=== PATIENT | female | born 1980 | race Caucasian/White ===

== ENCOUNTER 2022-06-17 08:50 | Emergency (ER) | payer BC, MEDICAID, SELFPAY ==
[2022-06-17 08:58] VITALS: BP 124/69; PULSE 65; RESP 16; TEMP 36.8; O2SAT 97; BMI 32.6
--- NOTE | 2022-06-17 09:08 | ED_ITS ---
HPI - Back Pain/Injury General: Chief Complaint: Back Pain/Injury Stated Complaint: back pain Time Seen by Provider: 06/17/22 08:52 Source: patient Mode of arrival: ambulatory Limitations: no limitations History of Present Illness: Patient is a 41-year-old female presents to ED today with a complaint of mid back pain that awoke her from sleep around 2 AM. She states back pain seems to radiate straight through into the front/chest. She feels pain is worsened with lying flat. Patient denies any injury or trauma to the back. Denies any recent lifting, twisting, turning injuries. Denies flank pain or urinary symptoms. She states she does not feel overly short of breath at rest but does have some shortness of breath when she lies flat-she attributes this to pain. Denies N/V/D/C. Denies previous back pain/injuries. No fevers. MD elicited complaint: back pain Onset (ago): hour(s) Timing: constant Severity: moderate Similar Symptoms Previously: No Quality: sharp and spasming Location: thoracic spine Radiation: abdomen Exacerbating factors: supine positioning Relieving factors: none Associated symptoms: Deny chills, change in bowel habits, dysuria, fatigue, fever(s), nausea, syncope, urinary urgency or vomiting Work related injury: No Review of Systems Const: Denies: fever(s), chills, body aches, fatigue or malaise Card: Reports: chest pain (states back pain radiates into chest/abdomen) and orthopnea; Denies: palpitations, irregular heart rhythm, edema, swelling of feet/ankles, lightheadedness, syncope, pre-syncope, dyspnea on exertion, leg pain with exertion or acrocyanosis Resp: Denies: productive cough, non-productive cough, wheezing, hemoptysis or chest congestion GI: Denies: nausea, vomiting, diarrhea or change in bowel habits : Denies: flank pain, difficulty voiding, dysuria, urinary frequency, urinary urgency or urinary hesitancy Musc: Reports: back pain; Denies: neck pain, extremity pain, extremity swelling or joint pain Skin/Breast: Denies: rash Neuro: Denies: headache(s), numbness in extremities, weakness in extremities, sensory changes or dizziness Physical Exam Const: COMMON NORMALS: no acute distress, average body habitus, patient orien aravind x3, no limitations, healthy appearing, alert and well nourished ORIENTATION/CONSCIOUSNESS: Yes awake, Yes oriented to person, Yes oriented to place and Yes oriented to time HENMT: COMMON NORMALS: normocephalic and atraumatic HEAD & SCALP: normal to inspection, normocephalic and atraumatic Neck/C-Spine: COMMON NORMALS: no JVD Chest: COMMONS NORMALS: normal inspection of the chest and normal palpation of entire chest wall Resp: COMMON NORMALS: normal respiratory effort and clear to auscultation bilaterally AUSCULTATION: clear to auscultation bilaterally Cardio: COMMON NORMALS: no JVD, regular rate and regular rhythm RATE: regular rate RHYTHM: regular rhythm GI: COMMON NORMALS: Normal to inspection, nondistended, normoactive bowel sounds present, Soft to palpation, No hepatosplenomegaly present and no masses INSPECTION: Yes normal to inspection AUSCULTATION: Yes normoactive bowel sounds PALPATION: Yes Soft to palpation, Yes Tenderness to palpation present (GI) (epigastric ), No Guarding due to palpation present (GI), No Rigid due to palpation and Yes No hepatosplenomegaly present : COMMON NORMALS: Yes no CVA tenderness BLADDER/KIDNEY EXAM: Yes no CVA tenderness Back/Pelvis: COMMON NORMALS: no CVA tenderness THORACIC SPINE/UPPER BACK: Yes pain with ROM, No thoracic spinal tenderness, No paraspinal muscle tenderness and No paraspinal muscle spasm LUMBAR SPINE/LOWER BACK: Yes lumbar ROM normal, No lumbar spinal tenderness, No paraspinal muscle tenderness and No paraspinal muscle spasm PELVIS: Yes buttocks normal SACROILIAC JOINTS: Yes SI joints normal SACRUM: no tenderness COCCYX: no tenderness OTHER: states palpation does not really seem to elicit her discomfort Extremity: COMMON NORMALS: normal to inspection, full ROM, capillary refill normal, no joint enlargement, no clubbing, cyanosis or edema, no calf tenderness and no pedal edema NARRATIVE EXTREMITY EXAM: pulses to UE/LEs equal bilaterally; BPs to bilateral UEs equal GENERAL: Yes normal exam except as noted Neuro: GUI COMA SCALE: document GCS findings [place] coma scale eye opening: Spontaneous Gui coma scale verbal response: Orientated [place] coma scale motor response: Obey commands Gui coma scale total score: 15 COMMON NORMALS: patient oriented x3, CN's II-XII intact bilaterally, moves all extremities, no focal motor deficits, no sensory deficits noted and gait normal SENSORIUM/ORIENTATION: Yes alert, Yes oriented to person, Yes oriented to place and Yes oriented to time MOTOR EXAM: 5/5 motor strength present throughout Skin: COMMON NORMALS: no rashes or lesions noted GENERAL SKIN EXAM: no rashes or lesions noted Course Vital Signs: Vital signs: Vital Signs Temperature 98.2 F 06/17/22 08:58 Pulse Rate 66 06/17/22 12:00 Respiratory Rate 20 H 06/17/22 10:03 Blood Pressure 133/90 06/17/22 12:00 Pulse Oximetry 99 06/17/22 12:00 Oxygen Delivery Me thod 06/17/22 11:30 MDM - Back Pain/Injury Medical Decision Making Patient is a 41-year-old female here for complaints of atraumatic mid back pain that awoke her from sleep around 2 AM. She felt like pain was radiating around into her chest/epigastric abdomen. Patient's pain initially not reproducible however on re-examination there was some reproducible component. Patient has no risk factors for aneurysm/dissection and nothing on physical exam/work up to suggest this. CXR normal. BP equal bilaterally to UEs. Blood work including cardiac work-up as well as a BNP and d-dimer are all are negative. Patient did gain improvement from IM Toradol/Norflex. I think at this time it is appropriate to defer advanced CT imaging and treat for musculoskeletal etiology. Recommend close observation of symptoms at home and strict return to ED precautions were verbally discussed with patient who voiced understanding. Labs 06/17/22 09:50 06/17/22 09:50 Radiology Impressions Chest X-Ray 06/17/22 09:13 IMPRESSION: No acute findings. Laboratory Results WBC 12.4 10^3/uL (4.0-10.0) H 06/17/22 09:50 RBC 5.02 10^6/uL (4.1-5.3) 06/17/22 09:50 Hgb 14.2 g/dL (11.5-15.3) 06/17/22 09:50 Hct 44.3 % (37.0-47.0) 06/17/22 09:50 MCV 88.2 fl (81-99) 06/17/22 09:50 MCH 28.3 pg (28.0-34.0) 06/17/22 09:50 MCHC 32.1 g/dL (30.0-36.0) 06/17/22 09:50 RDW 12.5 % (12.1-15.1) 06/17/22 09:50 Plt Count 419 10^3/cmm (130-400) H 06/17/22 09:50 MPV 9.5 fL (7.4-10.4) 06/17/22 09:50 Neut % (Auto) 77.5 % 06/17/22 09:50 Lymph % (Auto) 13.3 % 06/17/22 09:50 [place] % (Auto) 5.5 % 06/17/22 09:50 Eos % (Auto) 2.8 % 06/17/22 09:50 Baso % (Auto) 0.6 % 06/17/22 09:50 Neut # (Auto) 9.58 10^3/uL (1.8-7.7) H 06/17/22 09:50 Lymph # (Auto) 1.6 10^3/uL (0.8-4.8) 06/17/22 09:50 [place] # (Auto) 0.7 10^3/uL (0.2-0.9) 06/17/22 09:50 Eos # (Auto) 0.4 10^3/uL (0.0-0.8) 06/17/22 09:50 Baso # (Auto) 0.1 10^3/uL (0.0-0.1) 06/17/22 09:50 Nucleated RBC % (auto) 0 % 06/17/22 09:50 Nucleated RBCs # 0.0 /100WBC 06/17/22 09:50 D-Dimer 0.30 ug/mIFEU (0-0.59) 06/17/22 09:50 Sodium 137 mmol/L (136-145) 06/17/22 09:50 Potassium 3.9 mmol/L (3.5-5.1) 06/17/22 09:50 Chloride 101 mmol/L (98-107) 06/17/22 09:50 Carbon Dioxide 26 mmol/L (22-29) 06/17/22 09:50 Anion Gap 13.9 (5-19) 06/17/22 09:50 BUN 12 mg/dL (6-20) 06/17/22 09:50 Creatinine 0.5 mg/dL (0.5-0.9) 06/17/22 09:50 GFR Calculation 136.0 mL/min (90-130) H 06/17/22 09:50 Glucose 93 mg/dL (65-115) 06/17/22 09:50 Calculated Osmolality 283 mOsm/kg (285-295) L 06/17/22 09:50 Calcium 8.7 mg/dL (8.5-10.5) 06/17/22 09:50 Total Bilirubin 0.3 mg/dL (0.15-1.2) 06/17/22 09:50 AST 9 U/L (0-32) 06/17/22 09:50 ALT 10 U/L (0-33) 06/17/22 09:50 Alkaline Phosphatase 90 U/L (35-105) 06/17/22 09:50 Troponin T Baseline 6 ng/L (0-10) 06/17/22 09:50 NT-Pro-B Natriuret Pep 120 pg/mL (0-125) 06/17/22 09:50 Total Protein 6.8 g/dL (6.6-8.7) 06/17/22 09:50 Albumin 4.2 g/dL (3.5-5.2) 06/17/22 09:50 Globulin 2.6 g/dL (1.3-4.6) 06/17/22 09:50 Lipase 37 U/L (13-60) 06/17/22 09:50 Urine Color Yellow (Yellow) 06/17/22 09:18 Urine Appearance Hazy (CLEAR) A 06/17/22 09:18 Urine pH 6.5 (5-7) 06/17/22 09:18 Ur Specific [place] 1.015 (1.005-1.030) 06/17/22 09:18 Urine Protein Neg (Negative) 06/17/22 09:18 Urine Glucose (UA) Norm (Normal) 06/17/22 09:18 Urine Ketones Negative (Negative) 06/17/22 09:18 Urine Blood Neg (Negative) 06/17/22 09:18 Urine Nitrate Negative (Negative) 06/17/22 09:18 Urine Bilirubin Neg (Negative) 06/17/22 09:18 Urine Urobilinogen Norm mg/dL (Negative) 06/17/22 09:18 Ur Leukocyte Esterase 2+ (Negative) H 06/17/22 09:18 Urine RBC 0-4 /hpf (0-2) H 06/17/22 09:18 Urine WBC 10-15 /hpf (0-5) H 06/17/22 09:18 Ur Squamous Epith Cells 10-15 /hpf (0-5) H 06/17/22 09:18 Amorphous Sediment Not Reportable 06/17/22 09:18 Urine Bacteria 3+ /hpf (NONE) H 06/17/22 09:18 Urine Mucus Trace /hpf 06/17/22 09:18 Discharge Plan Discharge Patient Disposition: Home Clinical Impression: Thoracic back pain Qualifiers: Chronicity: acute Back pain laterality: midline Qualified Code(s): M54.6 - Pain in thoracic spine Condition: Stable Prescriptions: New cyclobenzaprine 10 mg tablet 10 mg PO TID Qty: 14 0RF diclofenac sodium 50 mg tablet,delayed release (DR/EC) 50 mg PO Q12H PRN (Reason: pain) Qty: 20 0RF Discharge Orders: Discharge ED (Routine); Ordered 06/17/22 Ordered By: Nadeen Manjarrez Activity Restrictions/Additional Instructions: As we discussed we need to see you back in the emergency department for worsening or not improving back pain, severe flank pain, fevers, vomiting, urinary complaints such as frequency/hesitancy/painful urination, chest pain or shortness of breath, severe abdominal pains, or any other concerns she may have. 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
--- NOTE | 2022-06-17 09:13 | XRR_ITS ---
PROCEDURE INFORMATION: Exam: XR Chest Exam date and time: 06/17/2022 9:29 AM Age: 41 years old Clinical indication: Pain; Chest pressure; Additional info: Chest/back pain TECHNIQUE: Imaging protocol: Radiologic exam of the chest. Views: 1 view. COMPARISON: No relevant prior studies available. FINDINGS: Lungs: Unremarkable. No consolidation. Pleural spaces: Unremarkable. No pleural effusion. No pneumothorax. Heart/Mediastinum: Unremarkable. No cardiomegaly. Bones/joints: Unremarkable. XR/XR chest 1V portable [id number] IMPRESSION: No acute findings.
--- NOTE | 2022-06-17 09:26 | ECG_ITS ---
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 Measurements Intervals [place] Rate: 68 P: 50 [place]: 176 QRS: 26 QRSD: 83 T: 60 QT: 388 QTc: 415 Interpretive Statements SINUS RHYTHM No previous ECG available for comparison Electronically Signed On 06-17-2022 21:44:35 CDT by Darleen Irving M.D. [email or web address]
[2022-06-17 09:54] LABS: Urine Appearance Hazy (CLEAR); Urine Color Yellow (Yellow)
[2022-06-17 09:55] LABS: Add Urine Microscopic? YES; Bilirubin Urine Neg (Negative); Blood Urine Neg (Negative); Glucose Urine UA Norm (Normal); Ketones Urine Negative (Negative); Leukocyte Esterase Urine 2+ (Negative); Nitrate Urine Negative (Negative); Protein Urine Neg (Negative); Specific Gravity, Urine 1.015 (1.005-1.030); Urobilinogen Urine Norm (Negative); pH Urine 6.5 (5-7)
[2022-06-17 09:56] LABS: Bacteria Urine 3+ /hpf; RBC Urine 0-4 /hpf (0-2)
[2022-06-17 09:57] LABS: Add Urine Culture? No; Mucus Urine TRACE /hpf
[2022-06-17 10:03] VITALS: BP 128/82; RESP 20; O2SAT 97
[2022-06-17 10:06] LABS: Basophils # 0.1 10^3/uL (0.0-0.1); Basophils % 0.6 %; Eosinophils # 0.4 10^3/uL (0.0-0.8); Eosinophils % 2.8 %; Hematocrit 44.3 % (37.0-47.0); Hemoglobin 14.2 g/dL (11.5-15.3); Lymphocytes # 1.6 10^3/uL (0.8-4.8); Lymphocytes % 13.3 %; Mean Corpuscular HGB Conc 32.1 g/dL (30.0-36.0); Mean Corpuscular Hemoglobin 28.3 pg (28.0-34.0); Mean Corpuscular Volume 88.2 fl (81-99); Mean Platelet Volume 9.5 fL (7.4-10.4); Monocytes # 0.7 10^3/uL (0.2-0.9); Monocytes % 5.5 %; Neutrophils # 9.58 10^3/uL (1.8-7.7); Neutrophils % 77.5 %; Nucleated Red Blood Cells % 0 %; Platelet Count 419 10^3/cmm (130-400); Red Blood Count 5.02 10^6/uL (4.1-5.3); Red Cell Distribution Width 12.5 % (12.1-15.1); White Blood Count 12.4 10^3/uL (4.0-10.0)
[2022-06-17 10:17] LABS: Alanine Aminotransferase 10 U/L (0-33); Albumin Level 4.2 g/dL (3.5-5.2); Alkaline Phosphatase 90 U/L (35-105); Aspartate Amino Transferase 9 U/L (0-32); Blood Urea Nitrogen 12 mg/dL (6-20); Calcium 8.7 mg/dL (8.5-10.5); Carbon Dioxide 26 mmol/L (22-29); Globulin 2.6 g/dL (1.3-4.6); Glucose 93 mg/dL (65-115); Lipase 37 U/L (13-60); Potassium 3.9 mmol/L (3.5-5.1); Total Bilirubin 0.3 mg/dL (0.15-1.2); Total Protein 6.8 g/dL (6.6-8.7)
[2022-06-17 10:19] LABS: Troponin(5th) Baseline 6 ng/L (0-10)
[2022-06-17] MEDS: orphenadrine 30 mg/mL Inj 2 mL 60 MG IM (10:24)
[2022-06-17] MEDS: ketorolac 60 mg/2 mL INJ IM (10:24)
[2022-06-17 10:32] LABS: Anion Gap 13.9 (5-19); Chloride 101 mmol/L (98-107); Osmolality Calculated 283 mOsm/kg (285-295); Sodium 137 mmol/L (136-145)
[2022-06-17 10:51] LABS: NT Pro B Type Natriuretic Pept 120 pg/mL (0-125)
--- NOTE | 2022-06-17 11:14 | ECG_ITS ---
[facility] Test Date: 2022-06-17 Pat Name: Yahaira Kerr Department: Room: Gender: Female Rn Perinatal: : 1980 Requested By: Nadeen Manjarrez Order Number: [id number] Douglas MD: Darleen Irving M.D. Measurements Intervals [place] Rate: 62 P: 99 [place]: 181 QRS: 13 QRSD: 84 T: 134 QT: 422 QTc: 431 Interpretive Statements SINUS RHYTHM LOW QRS VOLTAGE IN EXTREMITY LEADS [QRS DEFLECTION < 0.5 mV IN LIMB LEADS] ABNORMAL QRS-T ANGLE [QRS-T AXIS DIFFERENCE > 60] Compared to ECG 06/17/2022 09:26:47 Low QRS voltage now present Electronically Signed On 06-17-2022 21:48:25 CDT by Darleen Irving M.D. [id number]
[2022-06-17 11:30] VITALS: BP 133/90; O2SAT 98
[2022-06-17 12:00] VITALS: BP 133/90; PULSE 66; O2SAT 99
--- NOTE | 2022-06-22 14:04 | DCPLANNER ---
Addendum entered by Demi Almeida 06/30/22 08:07: Patient had a follow up appointment scheduled with Dr. Sawyer - patient did not attend appointment Original Note: safety and skill based pay manager called patient due to no primary care physician. Patient stated that she would like help in getting established with a primary care physician. safety and skill based pay manager called [facility], spoke with Tahira, gave clinic patients information. A follow up appointment was scheduled for Monday, June 27, 2022 at 9:[address] Sawyer. safety and skill based pay manager informed patient of the appointment information.
== END 2022-06-17 12:01 | disposition home or self-care (01) ==
PROVIDERS: Emergency Provider Physician Assistant
DX: M54.6 Pain in thoracic spine (principal)
CPT/HCPCS: 36415; 71045; 80053; 81001; 83690; 83880; 84484; 85025; 85378; 93005; 96372; 99285; J1885; J2360